=== PATIENT | female | born 1985 | race Caucasian/White ===

== ENCOUNTER 2017-01-12 18:04 | Outpatient (CLI) | payer MEDICAID ==
--- NOTE | 2017-01-12 18:52 | Non Stress Test Report ---
Non Stress Test Datetime Report Generated by CPN: 01/12/2017 18:51 DEMOGRAPHIC Test Number: 1 EGA NST: 37.3 INDICATION Indication for Study: Decreased Movement MONITORING Monitor Explained: Monitor Explained; Test Explained; Patient Verbalized Understanding Time on Monitor: 01/12/2017 18:28 Time off Monitor: 01/12/2017 18:50 NST Duration: 22 NST INTERVENTIONS NST Interventions: None Physician Notified NST: Dr. Bennett-Laci BABY A: [id number] BABY A Movement : Present Contraction Frequency : Irreg FHR Baseline : 135 Accelerations : 15X15 Decelerations : None Variability : Moderate 6-25bpm NST Review: Meets Criteria for Reactive NST NST Review and Verified By : ASHIA Griffin Results: Reactive NST REPORT Report Trigger: Send Report
[2017-01-12 19:05] LABS: BILIRUBIN,URINE NEGATIVE (NEGATIVE); GLUCOSE, URINE NEGATIVE (NEGATIVE); KETONES,URINE NEGATIVE (NEGATIVE); LEUKOCYTE ESTERASE,URINE SMALL (NEGATIVE); NITRITE,URINE NEGATIVE (NEGATIVE); PROTEIN,URINE NEGATIVE (NEGATIVE); URINE SPECIFIC GRAVITY 1.006; UROBILINOGEN,URINE NEGATIVE mg/dL (<2.0)
[2017-01-12 19:08] LABS: APPEARANCE,URINE CLEAR
[2017-01-12 19:13] LABS: URINE BARBITURATES SCREEN NEGATIVE; URINE METHADONE SCREEN NEGATIVE; URINE OPIATES LOW NEGATIVE; URINE PHENCYCLIDINE SCREEN NEGATIVE
== END 2017-01-12 18:40 | disposition home or self-care (01) ==
LOC: LC 18:04
PROVIDERS: ATTEND Obstetrics & Gynecology
DX: O36.8130 Decreased fetal movements, third trimester, not applicable or unspecified (principal); Z3A.37 37 weeks gestation of pregnancy
CPT/HCPCS: 59025; 80307; 81001

== ENCOUNTER 2017-01-23 04:20 | Inpatient (IN) | payer MEDICAID ==
[2017-01-23] MEDS ORDERED: LIDOCAINE 1% INJ-PF (10 MG/ML) 30 ML SDV ONE (04:30)
[2017-01-23] MEDS ORDERED: MISOPROSTOL 0.2 MG TABLET ONE (04:30)
[2017-01-23] MEDS ORDERED: OXYTOCIN/NORMAL SALINE 20 UNIT/1,000 ML RTUINJ ONE (04:30)
[2017-01-23] MEDS ORDERED: RINGERS SOLUTION,LACTATED 1,000 ML IV PRN (04:57)
[2017-01-23] MEDS ORDERED: RINGERS SOLUTION,LACTATED 1,000 ML IV ONE (04:57)
[2017-01-23 05:15] LABS: APPEARANCE,URINE CLOUDY; BILIRUBIN,URINE NEGATIVE (NEGATIVE); GLUCOSE, URINE NEGATIVE (NEGATIVE); KETONES,URINE NEGATIVE (NEGATIVE); LEUKOCYTE ESTERASE,URINE MODERATE (NEGATIVE); NITRITE,URINE NEGATIVE (NEGATIVE); PROTEIN,URINE NEGATIVE (NEGATIVE); URINE SPECIFIC GRAVITY 1.014; UROBILINOGEN,URINE NEGATIVE mg/dL (<2.0)
[2017-01-23] MEDS ORDERED: EPHEDRINE SULFATE INJ 50 MG/1 ML AMPULE ONE (05:27)
[2017-01-23] MEDS ORDERED: FENTANYL/BUPIVACAINE/NS/PF 200 MCG/100 ML RTUINJ EPI ONE (05:28)
[2017-01-23] MEDS ORDERED: BUPIVACAINE HCL 0.25 % INJ/PF (2.5 MG/1 ML) 30 ML VIAL ONE (05:28)
[2017-01-23 05:29] LABS: ABSOLUTE EOSINOPHILS # (AUTO) 0.2 10^3/uL (0.0-0.6); ABSOLUTE LYMPHOCYTES (AUTO) 2.6 10^3/uL (0.5-4.7); ABSOLUTE NEUT (AUTO) 7.1 10^3/uL (1.7-8.2); BASOPHILS % (AUTO) 0.3 % (0-2); EOSINOPHILS % (AUTO) 1.4 % (0-6); HEMATOCRIT 38.5 % (36.0-47.0); HEMOGLOBIN 13.4 g/dL (12.0-15.5); HGB HCT DIFFERENCE 1.7; LYMPHOCYTES % (AUTO) 24.2 % (13-45); MEAN CORPUSCULAR HEMOGLOBIN 30.4 pg (27.0-33.4); MEAN CORPUSCULAR HGB CONC 34.7 g/dL (32.0-36.0); MEAN CORPUSCULAR VOLUME 87 fl (80-97); MONOCYTES % (AUTO) 9.1 % (3-13); RED CELL DISTRIBUTION WIDTH 14.3 % (11.5-14.0); WHITE BLOOD COUNT 10.9 10^3/uL (4.0-10.5)
[2017-01-23 05:32] LABS: URINE BARBITURATES SCREEN NEGATIVE; URINE METHADONE SCREEN NEGATIVE; URINE OPIATES LOW NEGATIVE; URINE PHENCYCLIDINE SCREEN NEGATIVE
--- NOTE | 2017-01-23 09:06 | L&D Progress Notes ---
PROGRESS NOTES Datetime Report Generated by CPN: 01/23/2017 09:06 PROGRESS NOTE Impression: Normal Progression of Labor Plan: Continue Present Management Informed Consent Obtained: Vaginal Delivery; Risks, Benefits and Alternatives Discussed Vital Signs : Reviewed Comment: 31 yo presents in active labor EDC 01/30/17 EGA 39 allergies pork products, milk, and apple juice breast and gall bladder surgeries abdomen soft and nontender FHTs 120s average variability uterine contractions- 2-5 min SVE c/c/+[address] proven pelvis to 8lbs 9 oz anticipate delivery VAGINAL EXAM Dilatation: 0 Effacement: 0 Station: -4 Contractions: None MEMBRANES Membranes: Intact FETUS A FHR - Baseline: 130 Monitoring: External US Variability: Moderate 6-25bpm Accelerations: 15X15 Decelerations: None FHR Category: Category I SIGNATURE SIGNATURE: [id number];[id number] SIGNATURE: [id number] Assignment: Steven Knott MD Signature: with User ID: [email or web address] : with User ID: [email or web address]
[2017-01-23] MEDS ORDERED: OXYTOCIN/NORMAL SALINE 20 UNIT/1,000 ML RTUINJ IV PRN (09:57)
[2017-01-23] MEDS ORDERED: ZOLPIDEM TARTRATE 5 MG TABLET PO PRN (09:57)
[2017-01-23] MEDS ORDERED: DIPH/PERTUSS(ACELL)/TETANUS VAC/PF 0.5 ML SYR (>=10YO) IM PRN (09:57)
[2017-01-23] MEDS ORDERED: ACETAMINOPHEN WITH CODEINE #3 TABLET PO PRN (09:57)
[2017-01-23] MEDS ORDERED: DIBUCAINE 1% OINTMENT 28 GM TP PRN (09:57)
--- NOTE | 2017-01-23 11:18 | Delivery Summary ---
Del Sum A-C Datetime Report Generated by CPN: 01/23/2017 11:18 DELIVERY PERSONNEL DELIVERY PERSONNEL: [id number] Delivery Doctor:: Aldo Verdin CNM Labor and Delivery Nurse:: Atul Garcia RN Nursery Nurse:: ASHIA Marcelino Tech/RETAIL PLANNING MANAGER: Megan Aguero, RETAIL PLANNING MANAGER II MATERNAL INFORMATION Delivery Anesthesia: Epidural Medications After Delivery: Pitocin Drip 20 Units/1000ml NSS Estimated Blood Loss (ml): 250 Maternal Complications: None Provider Comments: delivery of viable female light meconium noted at delivery bulb suctioned at perineum spouse at bedside SUBHA to abdomen tactile stimulation with spont cry noted spouse at bedside and cut cord after cord was clamped ff@u placenta intact 3VC hemostasis achieved EBL 250 cc perineum intact LABOR SUMMARY EDC: 01/30/2017 00:00 No. Babies in Womb: 1 Attempted: No Labor Anesthesia: Epidural LABOR INFORMATION Reason for Induction: Not Applicable Onset of Labor: 01/23/2017 04:36 Complete Dilatation: 01/23/2017 08:50 Oxytocin: N/A Group B Beta Strep: Negative Antibiotics # of Doses: 0 Antibiotics Time of Last Dose: n/a Name of Antibiotic Given: n/a Steroids Given: None Reason Steroids Not Administered: Not Applicable MEMBRANES Membranes Rupture Method: Spontaneous Rupture of Membranes: 01/23/2017 07:45 Length of Rupture (hr): 1.57 Amniotic Fluid Color: Clear Amniotic Fluid Amount: Small Amniotic Fluid Odor: Normal STAGES OF LABOR Stage 1 hr: 4 Stage 1 min: 14 Stage 2 hr: 0 Stage 2 min: 29 Stage 3 hr: 0 Stage 3 min: 4 Total Time in Labor hr: 4 Total Time in Labor min: 47 VAGINAL DELIVERY Episiotomy: None Laceration #1: None Laceration Extension #1: N/A Laceration Repair: Not Applicable CSECTION DELIVERY Primary Indication: N/A BABY A INFORMATION Delivery Date/Time: 01/23/2017 09:19 Method of Delivery: Vaginal Born in Route : No : N/A Forceps: N/A Vacuum Extraction: N/A Shoulder Dystocia : No PRESENTATION/POSITION BABY A Presentation: Cephalic Cephalic Presentation: Vertex Vertex Position: Right Occipital Anterior Breech Presentation: N/A PLACENTA INFORMATION BABY A Placenta Delivery Time : 01/23/2017 09:23 Placenta Method of Delivery: Spontaneous Placenta Status: Delivered SCORES BABY A Heart Rate 1 min: >100 bpm Resp Effort 1 min: Good Cry Reflex Irritability 1 min: Cough or Sneeze or Pulls Away Muscle Tone 1 min: Active Motion Color 1 min: Body [place], Extremities Blue Resuscitation Effort 1 min: Tactile Stimulation SCORE 1 MIN: 9 Heart Rate 5 min: >100 bpm Resp Effort 5 min: Good Cry Reflex Irritability 5 min: Cough or Sneeze or Pulls Away Muscle Tone 5 min: Active Motion Color 5 min: Completely [place] Resuscitation Effort 5 min: N/A SCORE 5 MIN: 10 INFANT INFORMATION BABY A Gestational Age at Delivery: 39.0 Gestational Status: Full Term- 39- 40.6 Weeks Infant Outcome : Liveborn Condition : Stable Infant Sex: Female IDENTIFICATION BABY A Verification Date/Time: 01/23/2017 10:01 ID Band Number: [id number] Mother's Name Verified: Yes RN Verifying : Darlene Templeton, RN and Atul aRdha, RN WEIGHT/LENGTH BABY A Birthweight (gm): 4190 Weight (lb): 9 Weight (oz): 4 Length (in): 20.50 Length (cm): 52.07 CORD INFORMATION BABY A No. Cord Vessels: 3 Nuchal Cord : N/A Cord Blood Taken: Yes-For Storage (Mom's Blood type +) Infant Suction: None; Mouth ASSESSMENT BABY A Infant Complications: None Physical Findings at Delivery: Within Normal Limits Infant Respirations: Appears Normal Skin to Skin: Yes Skin to Skin Time (min): 120 Toe Laster/ALS Called : No Care By: Linh King CNM SIGNATURES Assignment: Steven Knott MD Signature: with User ID: [email or web address] : with User ID: [email or web address]
--- NOTE | 2017-01-23 12:07 | Admission Physical ---
Datetime Report Generated by CPN: 01/23/2017 12:06 CURRENT ADMISSION Chief Complaint: Decreased Movement; Other Chief Complaint Other: Swelling Indication for Induction: Not Applicable Indication for Induction: Term, Intrauterine ; No Active Labor; Intact Membranes Admit Plan: Discharge Home ALLERGIES Medication Allergies: No Medication Allergies: milk (01/23/2017); pork derived (porcine) (01/23/2017); apple (01/23/2017) Medication Allergies: milk (01/23/2017); pork derived (porcine) (01/23/2017) Medication Allergies: No Known Allergies (01/12/2017) Latex: No Latex Allergies Food Allergies: milk, pork, apples Environmental Allergies: None OBSTETRICAL HISTORY EDC: 01/30/2017 00:00 : 8 Para: 3 Term: 3 : 0 SAB: 3 IAB: 1 Ectopic: 0 Livin Cesareans: 0 VBACs: 0 Multiple Births: 0 Gestational Diabetes: No Rh Sensitization: No Incompetent Cervix: No TODD: No Infertility: No ART Treatment: No Uterine Anomaly: No IUGR: No Hx Previous C/S: No Macrosomia: No Hx Loss/Stillborn: No PIH: No Hx : No Placenta Previa/Abruption: No Depression/PP Depression: No PTL/PROM: No Post Hemorrhage: No Current Procedures: Ultrasound; NST Obstetrical History Comments: G1-EAB G2- 38 week G3- SAB G4-SAB G5- SAB G6- 39 week G7- 38 week G8- current Obstetrical History Comments: G1-38 week G2-39 week G3- SAB G4-SAB G5- SAB G6-39 week G7- G8- current SEE RECORDS Alcohol: No Marijuana : No Cocaine: No Other Illicit Drugs: No Cigarettes: Never Smoker. [id number] MEDICAL HISTORY Diabetes: No Blood Transfusion: No Pulmonary Disease (Asthma, TB): Yes Breast Disease: Yes Hypertension: No Measuring Machine Tender Surgery: No Heart Disease: No Hosp/Surgery: No Autoimmune Disorder: No Anesthetic Complications: No Kidney Disease: No Abnormal Pap Smear: No Neuro/Epilepsy: No Psychiatric Disorders: No Other Medical Diseases: No Hepatitis/Liver Disease: No Significant Family History: No Varicosities/Phlebitis: No Trauma/Violence : No Thyroid Dysfunction: No Medical History Comments: Gallbladder removal 2015, breast reduction, asthma INFECTIOUS HISTORY Gonorrhea: No Genital Herpes: No Chlamydia: No Tuberculosis: No Syphilis: No Hepatitis: No HIV/AIDS Exposure: No Rash or Viral Illness: No HPV: No PHYSICAL EXAM General: Normal HEENT: Normal Neurologic: Normal Genitourinary Exam: Normal Extremities: Normal Pelvic Type: Adequate Physical Exam Comments: FHR 140, moderate variability, cat I, vertex, external US Vital Signs: Reviewed; Within Normal Limits VAGINAL EXAM Dilatation: 0 Effacement: 0 Station: -4 Contraction Comments: None MEMBRANES Membranes: Intact FETUS A EGA: 37.3 Monitoring: External US FHR- Baseline: 140 Variability: Moderate 6-25bpm Accelerations: 15X15 Decelerations: None FHR Category: Category I PLANS FOR LABOR AND DELIVERY Labor and Delivery: None Pain Management: Epidural Feeding Preference: Both Benefit of Breast Feed Discussed: Yes Circumcision: N/A INFORMED CONSENT Informed Consent Obtained: Vaginal Delivery; Risks, Benefits and Alternatives Discussed Signature: with User ID: [email or web address]
[2017-01-23] MEDS ORDERED: INFLUENZA ADLT QUAD (36MOS+) 2017-18 VAC 0.5 ML SYR IM PRN (12:39)
[2017-01-23] MEDS: IBUPROFEN 800 MG TABLET PO SCH ×2 (13:30→21:23)
[2017-01-23] MEDS: DOCUSATE SODIUM 100 MG CAPSULE PO SCH ×2 (15:18→17:29)
[2017-01-23] MEDS: FERROUS SULFATE 325 MG TABLET PO SCH ×2 (15:18→17:29)
[2017-01-23] MEDS: PRENATAL VITAMIN W DHA CAPSULE PO SCH (15:18)
[2017-01-23] MEDS: SENNOSIDES/DOCUSATE 8.6-50 MG 1 EACH TABLET PO SCH (15:18)
[2017-01-23] MEDS: ACETAMINOPHEN WITH CODEINE #3 TABLET PO PRN (19:22)
[2017-01-23] MEDS: BENZOCAINE/MENTHOL AEROSOL SPRAY 56 ML TOP PRN (21:24)
[2017-01-24] MEDS: IBUPROFEN 800 MG TABLET PO SCH ×3 (05:55→21:25)
[2017-01-24 07:37] LABS: HEMATOCRIT 35.6 % (36.0-47.0); HEMOGLOBIN 12.3 g/dL (12.0-15.5); HGB HCT DIFFERENCE 1.3; MEAN CORPUSCULAR HEMOGLOBIN 30.4 pg (27.0-33.4); MEAN CORPUSCULAR HGB CONC 34.7 g/dL (32.0-36.0); MEAN CORPUSCULAR VOLUME 88 fl (80-97); RED BLOOD COUNT 4.05 10^6/uL (3.72-5.28); RED CELL DISTRIBUTION WIDTH 14.5 % (11.5-14.0); WHITE BLOOD COUNT 8.4 10^3/uL (4.0-10.5)
[2017-01-24] MEDS: DOCUSATE SODIUM 100 MG CAPSULE PO SCH ×2 (09:29→17:39)
[2017-01-24] MEDS: FERROUS SULFATE 325 MG TABLET PO SCH ×2 (09:29→17:39)
[2017-01-24] MEDS: SENNOSIDES/DOCUSATE 8.6-50 MG 1 EACH TABLET PO SCH (09:30)
[2017-01-24] MEDS: PRENATAL VITAMIN W DHA CAPSULE PO SCH (09:30)
--- NOTE | 2017-01-24 10:17 | PDOC PROGRESS REPORT ---
Subjective-OB Subjective: Post Delivery Day: 31 year old. Denies any needs at this time Physical Exam (OB) Vital Signs: Temp Pulse Resp BP Pulse Ox 97.4 F 88 16 124/66 97 01/24/17 07:40 01/24/17 07:40 01/24/17 07:40 01/24/17 07:40 01/24/17 07:40 Intake & Output 01/23/17 01/24/17 01/25/17 06:59 06:59 06:59 Intake Total 502 Balance 502 Weight 107.9 kg - PIH/Pre-Eclampsia DTR's: 2 + Clonus: Negative Headache: Absent Epigastric Pain: No Visual Changes: No - Lochia Lochia Amount: Small 10-25 ml Lochia Color: Rubra/Red - Abdomen Description: Soft, Round Hernia Present: No Bowel Sounds: Normoactive Flatus Presence: Present Stool: Yes Fundal Description: Firm, Midline Fundal Height: u/u - u/2 Objective-Diagnostic Laboratory: 01/24/17 07:25 01/24/17 07:25 WBC 8.4 RBC 4.05 Hgb 12.3 Hct 35.6 L MCV 88 MCH 30.4 MCHC 34.7 RDW 14.5 H Plt Count 173
[2017-01-24] MEDS: ACETAMINOPHEN WITH CODEINE #3 TABLET PO PRN (22:21)
[2017-01-25] MEDS: IBUPROFEN 800 MG TABLET PO SCH (06:01)
[2017-01-25 08:42] VITALS: BP 116/71
[2017-01-25] MEDS: PRENATAL VITAMIN W DHA CAPSULE PO SCH (09:58)
[2017-01-25] MEDS: DOCUSATE SODIUM 100 MG CAPSULE PO SCH (10:00)
[2017-01-25] MEDS: FERROUS SULFATE 325 MG TABLET PO SCH (10:00)
[2017-01-25] MEDS: SENNOSIDES/DOCUSATE 8.6-50 MG 1 EACH TABLET PO SCH (10:00)
[2017-01-25] MEDS: BENZOCAINE/MENTHOL AEROSOL SPRAY 56 ML TOP PRN (10:01)
--- NOTE | 2017-01-25 10:36 | PDOC DISCHARGE SUMMARY ---
Final Diagnosis Discharge Date: 01/25/17 Discharge Data - Discharge Medication Home Medications: Vit/Iron Fum/Folic AC [ Tablet] 1 tab PO DAILY 01/12/17 Hydrocodone/Acetaminophen [Vicodin Es 7.5-300 mg Tablet] 1 each PO Q4HP PRN #10 tablet 01/25/17 Hydrocodone/Acetaminophen [Vicodin Es 7.5-300 mg Tablet] 1 each PO Q4HP PRN #10 tablet 01/25/17 Ibuprofen 800 mg PO Q8HP PRN #60 tablet 01/25/17 Ibuprofen [Motrin 800 mg Tablet] 800 mg PO Q8 #60 tablet 01/25/17 Reason(s) for Admission: Onset of Labor Intrapartum Procedure(s): Spontaneous Vaginal Delivery - Diagnosis Test Laboratory: Temp Pulse Resp BP Pulse Ox 97.9 F 84 18 116/71 99 01/25/17 07:58 01/25/17 07:58 01/25/17 07:58 01/25/17 07:58 01/25/17 07:58 01/23/17 01/23/17 01/24/17 04:30 04:56 07:25 RBC 4.40 4.05 Hgb 13.4 12.3 Hct 38.5 35.6 L Urine Opiates Screen NEGATIVE - Discharge information/Instructions Discharge Activity: Balance Activity w/Rest Discharge Diet: Regular Disposition: HOME, SELF-CARE Follow up with: [facility] in: 4, Weeks
--- NOTE | 2017-01-25 10:38 | PDOC PROGRESS REPORT ---
Subjective-OB Subjective: Post Delivery Day: 31 year old. pt doing well, reports diminished bleeding, pain controlled, voiding, tolerating diet. no complaints. Physical Exam (OB) Vital Signs: Temp Pulse Resp BP Pulse Ox 97.9 F 84 18 116/71 99 01/25/17 07:58 01/25/17 07:58 01/25/17 07:58 01/25/17 07:58 01/25/17 07:58 Intake & Output 01/24/17 01/25/17 01/26/17 06:59 06:59 06:59 Intake Total 502 340 Balance 502 340 - Abdomen Description: Soft, Round Hernia Present: No Fundal Description: Firm, Midline Fundal Height: u/u - u/2 - Extremities Lower extremities: Yudi's sign - neg Calf: Nontender Objective-Diagnostic Laboratory: 01/24/17 07:25
== END 2017-01-25 12:36 | disposition home or self-care (01) | DRG 775 ==
LOC: LC 04:20 → LR 04:27 → 2S 12:05
PROVIDERS: ADMIT Obstetrics & Gynecology; ATTEND Obstetrics & Gynecology
PROC: 10E0XZZ Delivery of Products of Conception, External Approach (ICD-10-PCS; principal; 2017-01-23)
PROC: 4A1HXCZ Monitoring of Products of Conception, Cardiac Rate, External Approach (ICD-10-PCS; 2017-01-23)
DX: O76 Abnormality in fetal heart rate and rhythm complicating labor and delivery (principal); O99.52 Diseases of the respiratory system complicating childbirth; J45.909 Unspecified asthma, uncomplicated; O77.0 Labor and delivery complicated by meconium in amniotic fluid; Z88.8 Allergy status to other drugs, medicaments and biological substances; Z91.011 Allergy to milk products; Z3A.39 39 weeks gestation of pregnancy; Z37.0 Single live birth
CPT/HCPCS: 36415; 80307; 81005; 85025; 85027; 86592; 86850; 86900; 86901; 90686; J2590; J3490

== ENCOUNTER 2018-06-28 11:28 | Outpatient (CLI) | payer BC, MEDICAID ==
[2018-06-28 12:51] LABS: BACTERIA (WET MOUNT) 3+ BACTERIA SEEN; EPITHELIALS (WET MOUNT) 4+ EPITHELIALS SEEN; T.VAGINALIS (WET MOUNT) NO TRICHOMONAS SEEN; WBCS (WET MOUNT) 1+ WBCS SEEN; YEAST (WET MOUNT) NO YEAST SEEN
[2018-06-28 13:06] LABS: APPEARANCE,URINE CLEAR; BILIRUBIN,URINE NEGATIVE (NEGATIVE); COLOR,URINE YELLOW; GLUCOSE, URINE NEGATIVE (NEGATIVE); KETONES,URINE NEGATIVE (NEGATIVE); LEUKOCYTE ESTERASE,URINE NEGATIVE (NEGATIVE); NITRITE,URINE NEGATIVE (NEGATIVE); PROTEIN,URINE NEGATIVE (NEGATIVE); URINE SPECIFIC GRAVITY 1.011; UROBILINOGEN,URINE NEGATIVE mg/dL (<2.0)
[2018-06-28 13:16] LABS: URINE AMPHETAMINES SCREEN NEGATIVE; URINE BARBITURATES SCREEN NEGATIVE; URINE BENZODIAZEPINES SCREEN NEGATIVE; URINE COCAINE SCREEN NEGATIVE; URINE MARIJUANA (THC) SCREEN NEGATIVE; URINE METHADONE SCREEN NEGATIVE; URINE PHENCYCLIDINE SCREEN NEGATIVE
[2018-06-28 14:18] LABS: CHLAM PCR NOT DETECTED (NOT DETECT); GON PCR NOT DETECTED (NOT DETECT)
== END 2018-06-28 13:20 | disposition home or self-care (01) ==
LOC: LC 11:28
PROVIDERS: ATTEND Obstetrics & Gynecology
DX: O47.02 False labor before 37 completed weeks of gestation, second trimester (principal); Z3A.24 24 weeks gestation of pregnancy
CPT/HCPCS: 87210; 81001; 80307; 87491; 87591; Q0114

== ENCOUNTER 2018-10-14 01:47 | Inpatient (IN) | payer BC, MEDICAID ==
[2018-10-14 02:16] LABS: APPEARANCE,URINE SLIGHTLY-CLOUDY; BILIRUBIN,URINE NEGATIVE (NEGATIVE); COLOR,URINE YELLOW; GLUCOSE, URINE NEGATIVE (NEGATIVE); KETONES,URINE NEGATIVE (NEGATIVE); LEUKOCYTE ESTERASE,URINE LARGE (NEGATIVE); NITRITE,URINE NEGATIVE (NEGATIVE); PROTEIN,URINE NEGATIVE (NEGATIVE); URINE SPECIFIC GRAVITY 1.014; UROBILINOGEN,URINE NEGATIVE mg/dL (<2.0)
[2018-10-14 02:33] LABS: URINE AMPHETAMINES SCREEN NEGATIVE; URINE BARBITURATES SCREEN NEGATIVE; URINE BENZODIAZEPINES SCREEN NEGATIVE; URINE COCAINE SCREEN NEGATIVE; URINE MARIJUANA (THC) SCREEN NEGATIVE; URINE METHADONE SCREEN NEGATIVE; URINE PHENCYCLIDINE SCREEN NEGATIVE
[2018-10-14] MEDS ORDERED: HYDROXYZINE PAMOATE 50 MG CAPSULE PO ONE (03:26)
[2018-10-14] MEDS ORDERED: LIDOCAINE 1% INJ-PF (10 MG/ML) 30 ML SDV ONE (06:07)
[2018-10-14] MEDS ORDERED: MISOPROSTOL 0.2 MG TABLET ONE (06:07)
[2018-10-14] MEDS ORDERED: OXYTOCIN 10 UNIT/ML VIAL ONE (06:07)
[2018-10-14] MEDS ORDERED: OXYTOCIN/NORMAL SALINE 20 UNIT/1,000 ML RTUINJ ONE (06:07)
--- NOTE | 2018-10-14 06:20 | Admission Physical ---
Datetime Report Generated by CPN: 10/14/2018 06:19 CURRENT ADMISSION Chief Complaint: Uterine Contractions Indication for Induction: Not Applicable Admit Impression : Term, Intrauterine ; Active Labor Admit Plan: Admit to Unit; Initiate Labor Protocol ALLERGIES Medication Allergies: No Medication Allergies: milk (10/14/2018); pork derived (porcine) (10/14/2018); apple (10/14/2018) Latex: No Latex Allergies OBSTETRICAL HISTORY EDC: 10/15/2018 00:00 : 9 Para: 4 Term: 4 : 0 SAB: 3 IAB: 1 Ectopic: 0 Livin Cesareans: 0 VBACs: 0 Multiple Births: 0 Gestational Diabetes: No Rh Sensitization: No Incompetent Cervix: No TODD: No Infertility: No ART Treatment: No Uterine Anomaly: No IUGR: No Hx Previous C/S: No Macrosomia: No Hx Loss/Stillborn: No PIH: No Hx : No Placenta Previa/Abruption: No Depression/PP Depression: No PTL/PROM: No Post Hemorrhage: No Current Procedures: Ultrasound; NST Obstetrical History Comments: G1- 2009 EAB at 6 weeks G2- 2011 at 38 weeks, 8lbs 9oz male G3- 2013 SAB at 6 weeks G4- 2013 SAB at 6 weeks G5- 2014 SAB at 5 weeks G6- 2014 at 39 weeks, 7lbs male G7- 2016 at 38 weeks, 7lbs 9oz male G8- 2017 at 39 weeks, 9lbs 4oz male G9- current SEE RECORDS Alcohol: No Marijuana : No Cocaine: No Other Illicit Drugs: No Cigarettes: Never Smoker. [id number] MEDICAL HISTORY Diabetes: No Blood Transfusion: No Pulmonary Disease (Asthma, TB): Yes Breast Disease: Yes Hypertension: No Branch Or Department Chief Librarian Surgery: No Heart Disease: No Hosp/Surgery: Yes Autoimmune Disorder: No Anesthetic Complications: No Kidney Disease: No Abnormal Pap Smear: No Neuro/Epilepsy: No Psychiatric Disorders: No Other Medical Diseases: No Hepatitis/Liver Disease: No Significant Family History: No Varicosities/Phlebitis: No Trauma/Violence : No Thyroid Dysfunction: No Medical History Comments: asthma, gallbladder removal, breast reduction, childbirth INFECTIOUS HISTORY Gonorrhea: No Genital Herpes: No Chlamydia: No Tuberculosis: No Syphilis: No Hepatitis: No HIV/AIDS Exposure: No Rash or Viral Illness: No HPV: No PHYSICAL EXAM General: Normal HEENT: Normal Neurologic: Normal Thyroid: Normal Heart: Normal Lungs: Normal Breast: Normal Back: Normal Abdomen: Normal Genitourinary Exam: Normal Extremities: Normal DTRs: Normal Pelvic Type: Adequate Vital Signs: Reviewed; Within Normal Limits VAGINAL EXAM Dilatation: 4 Effacement: 75 Station: -1 MEMBRANES Pooling: Negative Membranes: Intact FETUS A EGA: 39.6 Monitoring: External US FHR- Baseline: 120s Variability: Moderate 6-25bpm Accelerations: 15X15 FHR Category: Category I Presentation: Vertex Admit Comment: presents to L_D c/o contractions. Her ctx were irregular and she was allowed to walk--her ctx became more rgeular and more painful. Her cervix is 4 cm. GBS Negative. She reports good movement. No complications with the . PLANS FOR LABOR AND DELIVERY Labor and Delivery: None Pain Management: Epidural Feeding Preference: Breast Benefit of Breast Feed Discussed: Yes Circumcision: N/A INFORMED CONSENT Signature: with User ID: [email or web address]
[2018-10-14 06:57] LABS: ABSOLUTE EOSINOPHILS # (AUTO) 0.2 10^3/uL (0.0-0.6); ABSOLUTE LYMPHOCYTES (AUTO) 2.3 10^3/uL (0.5-4.7); ABSOLUTE MONOCYTES (AUTO) 0.9 10^3/uL (0.1-1.4); ABSOLUTE NEUT (AUTO) 7.1 10^3/uL (1.7-8.2); BASOPHILS % (AUTO) 0.3 % (0-2); EOSINOPHILS % (AUTO) 1.8 % (0-6); HEMATOCRIT 36.9 % (36.0-47.0); HEMOGLOBIN 13.1 g/dL (12.0-15.5); LYMPHOCYTES % (AUTO) 21.6 % (13-45); MEAN CORPUSCULAR HGB CONC 35.4 g/dL (32.0-36.0); MEAN CORPUSCULAR VOLUME 88 fl (80-97); MONOCYTES % (AUTO) 8.5 % (3-13); PLATELET COUNT 211 10^3/uL (150-450); RED BLOOD COUNT 4.21 10^6/uL (3.72-5.28); RED CELL DISTRIBUTION WIDTH 14.5 % (11.5-14.0); SEGMENTED NEUTROPHILS % (AUTO) 67.8 % (42-78); TOTAL CELLS COUNTED % (AUTO) 100 %; WHITE BLOOD COUNT 10.5 10^3/uL (4.0-10.5)
[2018-10-14] MEDS ORDERED: FENTANYL/BUPIVACAINE/NS/PF 300 MCG/150 ML RTUINJ EPI ONE (07:58)
[2018-10-14] MEDS ORDERED: EPHEDRINE SULFATE INJ 50 MG/1 ML AMPULE ONE (07:58)
[2018-10-14] MEDS ORDERED: BUPIVACAINE HCL 0.25 % INJ/PF (2.5 MG/1 ML) 30 ML VIAL ONE (07:58)
[2018-10-14] MEDS: RINGERS SOLUTION,LACTATED 1,000 ML IV PRN ×3 (08:06→10:33)
[2018-10-14] MEDS ORDERED: PROMETHAZINE HCL 25 MG SUPP.RECT PR PRN (11:26)
[2018-10-14] MEDS ORDERED: NA PHOS,M-B/NA PHOS,DI-BA (ADULT) 133 ML ENEMA PR PRN (11:26)
[2018-10-14] MEDS ORDERED: DIPH/PERTUSS(ACELL)/TETANUS VAC/PF 0.5 ML SYR (>=10YO) IM PRN (11:26)
[2018-10-14] MEDS ORDERED: BENZOCAINE/MENTHOL AEROSOL SPRAY 56 ML TOP PRN (11:26)
[2018-10-14] MEDS ORDERED: DIBUCAINE 1% OINTMENT 56 GM TP PRN (11:26)
[2018-10-14] MEDS ORDERED: PROMETHAZINE HCL INJ 25 MG/1 ML VIAL IV PRN (11:26)
[2018-10-14] MEDS ORDERED: PSEUDOEPHEDRINE HCL 30 MG TABLET PO PRN (11:26)
[2018-10-14] MEDS ORDERED: ACETAMINOPHEN WITH CODEINE #3 TABLET PO PRN ×2 (11:26)
[2018-10-14] MEDS ORDERED: ACETAMINOPHEN 650 MG SUPP.RECT PR PRN (11:26)
[2018-10-14] MEDS ORDERED: MISOPROSTOL 0.2 MG TABLET PR PRN (11:26)
[2018-10-14] MEDS ORDERED: MAGNESIUM HYDROXIDE SUSP 30 ML UDCUP PO PRN (11:26)
[2018-10-14] MEDS ORDERED: GLYCERIN/WITCH HAZEL LEAF 1 EACH MED..WIPE TP PRN (11:26)
[2018-10-14] MEDS ORDERED: DIPHENHYDRAMINE HCL 25 MG CAPSULE PO PRN (11:26)
[2018-10-14] MEDS ORDERED: PROMETHAZINE HCL 25 MG TABLET PO PRN (11:26)
[2018-10-14] MEDS ORDERED: OXYTOCIN/NORMAL SALINE 20 UNIT/1,000 ML RTUINJ IV PRN (11:26)
[2018-10-14] MEDS ORDERED: MEASLES,MUMPS&RUBELLA VACC/PF 0.5 ML VIAL SUBCUT PRN (11:26)
--- NOTE | 2018-10-14 13:44 | Delivery Summary ---
Del Sum A-C Datetime Report Generated by CPN: 10/14/2018 13:43 DELIVERY PERSONNEL DELIVERY PERSONNEL: [id number] Delivery Doctor:: Codie Zacarias CNM Labor and Delivery Nurse:: Dwight Menchaca RNclock and watch hands dipper Nurse:: Fany Paniagua RN Manager Psychiatry/CYTOTECHNOLOGIST/HISTOTECHNOLOGIST: Shawanda Leung CST Additional Personnel: : Gris Poon RN MATERNAL INFORMATION Delivery Anesthesia: Epidural Medications After Delivery: Pitocin Bolus-Please Comment; Pitocin Drip 20 Units/1000ml NSS; Cytotec 1000mcg Per Rectum/Vagina Delivery QBL: 300 Maternal Complications: None Provider Comments: viable female form OA to PRACHI over intact perineum, placed on mothers abd, cord clamped and cut after 2 minutes by FOB, spont delivery of grossly nl intact placenta, 3 VC, baby and mom remain in recovery in stable condition, bonding with baby FFFM Cytotec 1000 mcg via rectum LABOR SUMMARY EDC: 10/15/2018 00:00 No. Babies in Womb: 1 Attempted: No Labor Anesthesia: Epidural LABOR INFORMATION Reason for Induction: Not Applicable Onset of Labor: 10/14/2018 07:00 (Annotations: Data stored by N on behalf of user) Complete Dilatation: 10/14/2018 10:55 Cervical Ripening Agents: Cytotec @ 1 gm Oxytocin: N/A Group B Beta Strep: Negative Antibiotics # of Doses: 0 Steroids Given: None Reason Steroids Not Administered: Not Applicable MEMBRANES Membranes Rupture Method: Artificial Rupture of Membranes: 10/14/2018 08:58 Length of Rupture (hr): 2.18 Amniotic Fluid Color: Clear Amniotic Fluid Amount: Small Amniotic Fluid Odor: Normal STAGES OF LABOR Stage 1 hr: 3 Stage 1 min: 55 Stage 2 hr: 0 Stage 2 min: 14 Stage 3 hr: 0 Stage 3 min: 4 Total Time in Labor hr: 4 Total Time in Labor min: 13 VAGINAL DELIVERY Episiotomy: None Laceration #1: None Laceration Extension #1: N/A Other Laceration: SURERFICIAL ABRASION Laceration Repair: No Sponge Count Correct: N/A Sharps Count Correct: N/A CSECTION DELIVERY Primary Indication: N/A Secondary Indication: N/A CSection Incidence: N/A Labor: N/A Elective: N/A CSection Incision: N/A BABY A INFORMATION Infant Delivery Date/Time: 10/14/2018 11:09 Method of Delivery: Vaginal Born in Route : No : N/A Forceps: N/A Vacuum Extraction: N/A Shoulder Dystocia : No PRESENTATION/POSITION BABY A Presentation: Cephalic Cephalic Presentation: Vertex Vertex Position: Left Occipital Anterior Breech Presentation: N/A PLACENTA INFORMATION BABY A Placenta Delivery Time : 10/14/2018 11:13 Placenta Method of Delivery: Spontaneous Placenta Status: Delivered SCORES BABY A Heart Rate 1 min: >100 bpm Resp Effort 1 min: Good Cry Reflex Irritability 1 min: Cough or Sneeze or Pulls Away Muscle Tone 1 min: Active Motion Color 1 min: Blue/Pale Resuscitation Effort 1 min: Tactile Stimulation SCORE 1 MIN: 8 Heart Rate 5 min: >100 bpm Resp Effort 5 min: Good Cry Reflex Irritability 5 min: Cough or Sneeze or Pulls Away Muscle Tone 5 min: Active Motion Color 5 min: Body [place], Extremities Blue Resuscitation Effort 5 min: Tactile Stimulation SCORE 5 MIN: 9 INFANT INFORMATION BABY A Gestational Age at Delivery: 39.6 Gestational Status: Full Term- 39- 40.6 Weeks Infant Outcome : Liveborn Infant Condition : Stable Infant Sex: Female IDENTIFICATION BABY A Infant Verification Date/Time: 10/14/2018 11:27 ID Band Number: [id number] Mother's Name Verified: Yes RN Verifying : TMartin,RN Additional Verifying Personnel: DSprouse,US WEIGHT/LENGTH BABY A Infant Birthweight (gm): 4169 Infant Weight (lb): 9 Infant Weight (oz): 3 Infant Length (in): 21.00 Infant Length (cm): 53.34 CORD INFORMATION BABY A No. Cord Vessels: 3 Nuchal Cord : Around Neck x1, Loose Cord Blood Taken: Yes-For Storage (Mom's Blood type +) Infant Suction: None ASSESSMENT BABY A Infant Complications: None Physical Findings at Delivery: Within Normal Limits Infant Respirations: Appears Normal Skin to Skin: Yes Skin to Skin Time (min): 45 Radio Broadcaster/ALS Called : No Care By: Alley POON RN Transferred To: Remains with Mother BABY B INFORMATION : N/A
[2018-10-14] MEDS: IBUPROFEN 800 MG TABLET PO SCH ×2 (16:00→21:29)
[2018-10-14] MEDS: DOCUSATE SODIUM 100 MG CAPSULE PO SCH (18:09)
[2018-10-14] MEDS: FERROUS SULFATE 325 MG TABLET PO SCH (18:09)
[2018-10-14] MEDS: FAMOTIDINE 20 MG TABLET PO SCH (21:29)
[2018-10-15] MEDS: IBUPROFEN 800 MG TABLET PO SCH ×3 (06:20→21:37)
[2018-10-15 07:06] LABS: HEMATOCRIT 35.7 % (36.0-47.0); HEMOGLOBIN 12.3 g/dL (12.0-15.5); MEAN CORPUSCULAR HEMOGLOBIN 30.4 pg (27.0-33.4); MEAN CORPUSCULAR HGB CONC 34.4 g/dL (32.0-36.0); MEAN CORPUSCULAR VOLUME 88 fl (80-97); PLATELET COUNT 196 10^3/uL (150-450); RED BLOOD COUNT 4.03 10^6/uL (3.72-5.28); RED CELL DISTRIBUTION WIDTH 14.7 % (11.5-14.0); WHITE BLOOD COUNT 11.6 10^3/uL (4.0-10.5)
[2018-10-15] MEDS: DOCUSATE SODIUM 100 MG CAPSULE PO SCH ×2 (10:26→17:31)
[2018-10-15] MEDS: PRENATAL VITAMIN W DHA CAPSULE PO SCH (10:26)
[2018-10-15] MEDS: FERROUS SULFATE 325 MG TABLET PO SCH ×2 (10:26→17:31)
[2018-10-15] MEDS: SENNOSIDES/DOCUSATE 8.6-50 MG 1 EACH TABLET PO SCH (10:26)
[2018-10-15] MEDS: FAMOTIDINE 20 MG TABLET PO SCH ×2 (10:26→21:38)
--- NOTE | 2018-10-15 11:23 | PDOC PROGRESS REPORT ---
Subjective-OB Progress Note for:: 10/15/18 Subjective: 33yo s/p ppd1. Pt ambulating and voiding without difficulty. Reports pain well controlled with medication, no concerns at this time. Physical Exam (OB) Vital Signs: Temp Pulse Resp BP Pulse Ox 97.8 F 69 18 120/61 98 10/15/18 07:21 10/15/18 07:21 10/15/18 07:21 10/15/18 07:21 10/15/18 07:21 Intake & Output 10/14/18 10/15/18 10/16/18 06:59 06:59 06:59 Intake Total 307 Balance 307 Weight 110.5 kg 110.5 kg - General General Appearance: Appears well In distress: None - PIH/Pre-Eclampsia Clonus: Negative Headache: Absent Epigastric Pain: No Visual Changes: No - Episiotomy/Laceration Site Condition: N/A - superficial abrasion-hemostatic - Lochia Lochia Amount: Scant < 10 ml Lochia Color: Rubra/Red - Abdomen Description: Soft, Round Hernia Present: No Fundal Description: Firm, Midline Fundal Height: u/u - u/2 - Respiratory Respiratory Status: No respiratory distress - Extremities Upper extremity: Normal inspection Lower extremities: Normal inspection - Neurological Cognition: Normal Orientation: AAOx4 - Psychological Associated symptoms: Normal affect, Normal mood Objective-Diagnostic Laboratory: 10/15/18 06:53 10/15/18 06:53 WBC 11.6 H RBC 4.03 Hgb 12.3 Hct 35.7 L MCV 88 MCH 30.4 MCHC 34.4 RDW 14.7 H Plt Count 196 Assessment and Plan(PN) - Assessment and Plan (1) Grand multiparity Is this a current diagnosis for this admission?: Yes Plan: delivered (2) Delivery normal Is this a current diagnosis for this admission?: Yes Plan: routine pp care (3) History of asthma Is this a current diagnosis for this admission?: Yes Plan: routine pp care, continue to monitor for s/s of exacerbation (4) Hx of bilateral breast reduction surgery Is this a current diagnosis for this admission?: Yes Plan: delivered - Time Spent with Patient Time with patient: Less than 15 minutes Medications reviewed and adjusted accordingly: Yes - Disposition Anticipated Discharge: Home Within: within 24 hours
[2018-10-16] MEDS: IBUPROFEN 800 MG TABLET PO SCH (05:26)
[2018-10-16 08:44] VITALS: BP 125/75
[2018-10-16] MEDS: SENNOSIDES/DOCUSATE 8.6-50 MG 1 EACH TABLET PO SCH (09:57)
[2018-10-16] MEDS: FAMOTIDINE 20 MG TABLET PO SCH (09:57)
[2018-10-16] MEDS: FERROUS SULFATE 325 MG TABLET PO SCH (09:57)
[2018-10-16] MEDS: DOCUSATE SODIUM 100 MG CAPSULE PO SCH (09:57)
[2018-10-16] MEDS: PRENATAL VITAMIN W DHA CAPSULE PO SCH (09:57)
--- NOTE | 2018-10-16 10:04 | PDOC DISCHARGE SUMMARY ---
Final Diagnosis Discharge Date: 10/16/18 - day #2, doing well, no complaints, AB+, rubella immune, breast and bottlefeeding - Final Diagnosis (1) Grand multiparity Is this a current diagnosis for this admission?: Yes (2) Delivery normal Is this a current diagnosis for this admission?: Yes (3) History of asthma Is this a current diagnosis for this admission?: Yes (4) Hx of bilateral breast reduction surgery Is this a current diagnosis for this admission?: No (5) Is this a current diagnosis for this admission?: Yes Discharge Data - Discharge Medication Prescriptions: Ibuprofen [Motrin 800 mg Tablet] 800 mg PO Q8 #60 tablet Home Medications: No122/Iron/Folic Acid [ Multi Tablet] 1 tab PO DAILY 06/28/18 Ibuprofen [Motrin 800 mg Tablet] 800 mg PO Q8 #60 tablet 10/16/18 Reason(s) for Admission: Onset of Labor Procedures: Ultrasound Intrapartum Procedure(s): Spontaneous Vaginal Delivery - Diagnosis Test Laboratory: Temp Pulse Resp BP Pulse Ox 97.7 F 75 17 125/75 97 10/16/18 07:26 10/16/18 07:26 10/16/18 07:26 10/16/18 07:26 10/16/18 07:26 10/14/18 10/14/18 10/15/18 01:55 06:38 06:53 RBC 4.21 4.03 Hgb 13.1 12.3 Hct 36.9 35.7 L Urine Opiates Screen NEGATIVE - Discharge information/Instructions Discharge Activity: Activity As Tolerated, No Lifting Over 10 Pounds, Pelvic Rest Discharge Diet: As Tolerated, Regular Disposition: HOME, SELF-CARE Follow up with: [facility] in: 2, Weeks - f/u with PARAMJIT MATHIS for BTL consult and scheduling
== END 2018-10-16 13:42 | disposition home or self-care (01) | DRG 807 ==
LOC: LC 01:47 → LR 06:11 → 2S 13:20
PROVIDERS: ADMIT Obstetrics & Gynecology; ATTEND Obstetrics & Gynecology
PROC: 10E0XZZ Delivery of Products of Conception, External Approach (ICD-10-PCS; principal; 2018-10-14)
PROC: 3E0234Z Introduction of Serum, Toxoid and Vaccine into Muscle, Percutaneous Approach (ICD-10-PCS; 2018-10-16)
DX: O70.0 First degree perineal laceration during delivery (principal); Z37.0 Single live birth; O99.513 Diseases of the respiratory system complicating pregnancy, third trimester; J45.909 Unspecified asthma, uncomplicated; O69.81X0 Labor and delivery complicated by cord around neck, without compression, not applicable or unspecified; Z3A.39 39 weeks gestation of pregnancy; Z23 Encounter for immunization
CPT/HCPCS: 36415; 80307; 81005; 85025; 85027; 86592; 86850; 86900; 86901; 90715; J2590; J3010; J3490

== ENCOUNTER 2018-12-05 09:27 | Day surgery (SDC) | payer BC, MEDICAID ==
[2018-12-01 10:57] LABS: HEMATOCRIT 41.6 % (36.0-47.0); HEMOGLOBIN 14.4 g/dL (12.0-15.5); MEAN CORPUSCULAR HEMOGLOBIN 30.5 pg (27.0-33.4); MEAN CORPUSCULAR HGB CONC 34.7 g/dL (32.0-36.0); MEAN CORPUSCULAR VOLUME 88 fl (80-97); PLATELET COUNT 295 10^3/uL (150-450); RED BLOOD COUNT 4.73 10^6/uL (3.72-5.28); RED CELL DISTRIBUTION WIDTH 13.7 % (11.5-14.0); WHITE BLOOD COUNT 8.4 10^3/uL (4.0-10.5)
[2018-12-01 11:05] LABS: APPEARANCE,URINE SLIGHTLY-CLOUDY; BILIRUBIN,URINE NEGATIVE (NEGATIVE); COLOR,URINE YELLOW; GLUCOSE, URINE NEGATIVE (NEGATIVE); KETONES,URINE NEGATIVE (NEGATIVE); LEUKOCYTE ESTERASE,URINE NEGATIVE (NEGATIVE); NITRITE,URINE NEGATIVE (NEGATIVE); PROTEIN,URINE NEGATIVE (NEGATIVE); URINE SPECIFIC GRAVITY 1.018; UROBILINOGEN,URINE NEGATIVE mg/dL (<2.0)
[~2018-12-05 09:27] MED LIST: LACTATED RINGERS 1000 ML IV PRN; LIDOCAINE 0.5% INJ-PF (5 MG/ML) 50 ML SDV SUBCUT PRN
[2018-12-05] MEDS ORDERED: BUPIVACAINE HCL 0.25 % INJ/PF (2.5 MG/1 ML) 30 ML VIAL ONE (09:50)
[2018-12-05] MEDS ORDERED: MEPERIDINE HCL/PF INJ 25 MG/1 ML DISP.SYRIN IV PRN ×2 (10:46→12:54)
[2018-12-05] MEDS ORDERED: PROMETHAZINE HCL INJ 25 MG/1 ML VIAL IV PRN ×4 (10:46→12:54)
[2018-12-05] MEDS ORDERED: FENTANYL CITRATE INJ/PF 100 MCG/2 ML AMPUL IV PRN ×6 (10:46→12:54)
[2018-12-05] MEDS ORDERED: ONDANSETRON HCL INJ/PF 4 MG/2 ML SDV IV PRN ×2 (10:46→12:12)
[2018-12-05] MEDS ORDERED: DIPHENHYDRAMINE HCL 50 MG/ML VIAL IV PRN ×2 (10:46→12:54)
[2018-12-05] MEDS ORDERED: FENTANYL CITRATE INJ/PF 100 MCG/2 ML AMPUL ONE ×2 (11:32→11:39)
[2018-12-05] MEDS ORDERED: PROPOFOL INJ 200 MG/20 ML VIAL IV ONE (11:32)
[2018-12-05] MEDS ORDERED: PROMETHAZINE HCL INJ 25 MG/1 ML VIAL ONE (11:39)
[2018-12-05] MEDS ORDERED: KETOROLAC TROMETHAMINE INJ/PF 30 MG/1 ML SDV ONE (12:22)
[2018-12-05] MEDS ORDERED: MIDAZOLAM 2 MG/2 ML INJ ONE (12:50)
[2018-12-05] MEDS: OXYCODONE-ACETAMINOPHEN 5-325 MG TABLET ONE ×2 (13:25→14:47)
[2018-12-05 14:44] VITALS: BP 117/74
[2018-12-05] MEDS ORDERED: RINGERS SOLUTION,LACTATED 1,000 ML IV PRN (15:01)
[2018-12-05] MEDS ORDERED: HYDROMORPHONE HCL INJ/PF 2 MG/ML AMPULE IV PRN (15:02)
[2018-12-05] MEDS ORDERED: IBUPROFEN 800 MG TABLET PO PRN (15:03)
[2018-12-05] MEDS ORDERED: OXYCODONE-ACETAMINOPHEN 5-325 MG TABLET PO PRN ×2 (15:04→15:05)
--- NOTE | 2018-12-21 08:45 | Operative Report ---
Operative Report DATE OF SURGERY: 12/05/18 PREOPERATIVE DIAGNOSIS: Multiparity, Undesired Fertility POSTOPERATIVE DIAGNOSIS: [place] OPERATION: Laparoscopic Bilateral TUbal Ligation with Filschie Clips SURGEON: TRAVIS SIMONS ANESTHESIA: GA TISSUE REMOVED OR ALTERED: None COMPLICATIONS: None ESTIMATED BLOOD LOSS: less than 5ml INTRAOPERATIVE FINDINGS: normal appearing pelvis. Filschie Clips placed bilaterally. Lot # [id number] PROCEDURE: Anesthesiologist: Deangelo MATHIS, Ryder Trent CRNA IV fluids: [700ml] Urine output: [50ml] Indications: [33yo with multiparity and undesired fertility. She is 100% sure that she has completed childbearing. Her is also scheduled for vasectomy next week. She is scheduled for hernia repair later this month with general surgery. The risks, benefits, alternatives were reviewed and she desires to proceed with planned procedure.] Procedure: The patient was taken to the operating room where general anesthesia was obtained without difficulty. The patient was then examined under anesthesia with findings as noted above with a small anteverted uterus. She was then placed in dorsal supine lithotomy position and prepped and draped in the normal sterile fashion. [place] speculum was then placed in the patient's vagina and the anterior lip of the cervix grasped with a single-tooth tenaculum. A Humi uterine manipulator was then advanced into the uterus to provide a means of manipulation of the uterus. The speculum and tenaculum were then removed from the patient's cervix and vagina. Attention was then turned to the patient's abdomen where a 5 mm infraumbilical skin incision was then made. The Optiview trocar with 0 laparoscope was then advanced without difficulty under direct visualization with the Optiview trocar. This was performed while tenting the abdominal wall and these will fashion. Intraperitoneal placement was confirmed by the direct visualization. Pneumoperitoneum was then obtained with approximately 4 L carbon dioxide gas. Survey of the patient's abdomen and pelvis revealed findings as noted above. A second skin incision was then made midline suprapubic location. These incisions were made under direct visualization with the laparoscope. The second trochar were then advanced under direct visualization of the laparoscope in the midline suprapubic area. The right fallopian tube was then identified and followed out to the fimbriated end and the Filschie clip was placed on the mid ampullary portion of the fallopian tube. The right ovary was noted to be normal and vasculature remained intact to this ovary. Attention was then turned to the left adnexa at which time the left fallopian tube was identified and followed out to the fimbriated end and the Filschie clip was placed in the mid ampullary portion of the fallopian tube. All operative sites were visualized and noted to be hemostatic. The additional trochar were removed under direct visualization. The skin at all trocar sites were closed with 3-0 Monocryl in a subcuticular fashion with overlying Dermabond. No antibiotics were indicated for this procedure. After completion of skin closure of the trocar sites attention was then turned to the vagina where the Humi uterine manipulator was removed and the bivalve speculum was replaced. Silver nitrate was applied to the tenaculum sites for hemostasis and the speculum was removed. Sponge lap needle and instrument counts were correct 3. The patient tolerated the procedure well and was taken to the recovery area awake and in stable condition.
== END 2018-12-05 14:40 | disposition home or self-care (01) ==
LOC: OROUT 09:27
PROVIDERS: ATTEND Student in an Organized Health Care Education/Training Program
DX: Z30.2 Encounter for sterilization (principal); J45.909 Unspecified asthma, uncomplicated; Z32.02 Encounter for pregnancy test, result negative
CPT/HCPCS: 36415; 85027; 81005; 81025; 00851; 58671; J2250; J3010; J1885; J2550; J2704; 851

== ENCOUNTER → 2018-12-19 | Day surgery (SDC) | payer BC, MEDICAID ==
[2018-12-01 11:40] LABS: ANION GAP 12 (5-19); BLOOD UREA NITROGEN 16 mg/dL (7-20); CALCIUM 9.9 mg/dL (8.4-10.2); CARBON DIOXIDE 28 mmol/L (22-30); CHLORIDE 100 mmol/L (98-107); GLUCOSE 95 mg/dL (75-110); POTASSIUM 4.5 mmol/L (3.6-5.0)
[~2018-12-19] MED LIST changes: +ALBUTEROL SULFATE 0.083% NEB 2.5 MG/3 ML AMPUL NEB ONE; +BUPIVACAINE HCL 0.25 % INJ/PF (2.5 MG/1 ML) 30 ML VIAL ONE; +CEFAZOLIN SODIUM 2 GM in DEXTROSE 5%-WATER 100 ML IV PRN; +DEXAMETHASONE SOD PHOSPHATE INJ 4 MG/1 ML VIAL ONE; +FENTANYL CITRATE INJ/PF 100 MCG/2 ML AMPUL ONE; +FENTANYL CITRATE INJ/PF 250 MCG/5 ML AMPULE ONE; +IBUPROFEN 800 MG in NORMAL SALINE 250 ML IV PRN; +MIDAZOLAM 2 MG/2 ML INJ IV ONE; +MIDAZOLAM 2 MG/2 ML INJ ONE; +ONDANSETRON HCL INJ/PF 4 MG/2 ML SDV ONE; +PROPOFOL INJ 200 MG/20 ML VIAL IV ONE; +SCOPOLAMINE HYDROBROMIDE 1.5 MG PATCH.TD72 ONE; +SCOPOLAMINE HYDROBROMIDE 1.5 MG PATCH.TD72 TD ONE; +SUGAMMADEX SODIUM 200 MG/2 ML SDV IV ONE
[2018-12-19 08:04] VITALS: BP 110/62
== END ==
LOC: OROUT 06:52
PROVIDERS: ATTEND Surgery
DX: M62.08 Separation of muscle (nontraumatic), other site (principal); K42.9 Umbilical hernia without obstruction or gangrene; Z01.818 Encounter for other preprocedural examination
CPT/HCPCS: 36415; 81025; 80048; J0690; J7060; J7050; J1741; J1100; J2250; J2405; J2704; J3010; J3490

== ENCOUNTER 2019-01-09 10:37 | Day surgery (SDC) | payer BC, MEDICAID ==
[2019-01-05 09:49] LABS: HEMATOCRIT 41.3 % (36.0-47.0); HEMOGLOBIN 14.3 g/dL (12.0-15.5); MEAN CORPUSCULAR HEMOGLOBIN 30.9 pg (27.0-33.4); MEAN CORPUSCULAR HGB CONC 34.8 g/dL (32.0-36.0); MEAN CORPUSCULAR VOLUME 89 fl (80-97); PLATELET COUNT 331 10^3/uL (150-450); RED BLOOD COUNT 4.64 10^6/uL (3.72-5.28); RED CELL DISTRIBUTION WIDTH 13.6 % (11.5-14.0); WHITE BLOOD COUNT 7.9 10^3/uL (4.0-10.5)
[2019-01-05 10:08] LABS: ANION GAP 12 (5-19); BLOOD UREA NITROGEN 15 mg/dL (7-20); CALCIUM 9.6 mg/dL (8.4-10.2); CARBON DIOXIDE 26 mmol/L (22-30); CHLORIDE 105 mmol/L (98-107); GLUCOSE 86 mg/dL (75-110); POTASSIUM 4.4 mmol/L (3.6-5.0)
[~2019-01-09 10:37] MED LIST changes: +ACETAMINOPHEN 1,000 MG/100 ML RTUPB IV PRN; -ALBUTEROL SULFATE 0.083% NEB 2.5 MG/3 ML AMPUL NEB ONE; -BUPIVACAINE HCL 0.25 % INJ/PF (2.5 MG/1 ML) 30 ML VIAL ONE; -DEXAMETHASONE SOD PHOSPHATE INJ 4 MG/1 ML VIAL ONE; -FENTANYL CITRATE INJ/PF 100 MCG/2 ML AMPUL ONE; -FENTANYL CITRATE INJ/PF 250 MCG/5 ML AMPULE ONE; -MIDAZOLAM 2 MG/2 ML INJ IV ONE; -MIDAZOLAM 2 MG/2 ML INJ ONE; -ONDANSETRON HCL INJ/PF 4 MG/2 ML SDV ONE; +PREGABALIN 50 MG CAPSULE PO PRN; -PROPOFOL INJ 200 MG/20 ML VIAL IV ONE; +ROCURONIUM BROMIDE INJ 50 MG/5 ML VIAL IV ONE; -SCOPOLAMINE HYDROBROMIDE 1.5 MG PATCH.TD72 ONE; -SCOPOLAMINE HYDROBROMIDE 1.5 MG PATCH.TD72 TD ONE; -SUGAMMADEX SODIUM 200 MG/2 ML SDV IV ONE
[2019-01-09] MEDS ORDERED: ALBUTEROL SULFATE 0.083% NEB 2.5 MG/3 ML AMPUL NEB ONE ×2 (10:46→11:15)
[2019-01-09] MEDS ORDERED: SCOPOLAMINE HYDROBROMIDE 1.5 MG PATCH.TD72 ONE (10:46)
[2019-01-09] MEDS ORDERED: MIDAZOLAM 2 MG/2 ML INJ ONE ×2 (10:46→14:45)
[2019-01-09] MEDS ORDERED: PREGABALIN 50 MG CAPSULE ONE (10:47)
[2019-01-09] MEDS ORDERED: MIDAZOLAM 2 MG/2 ML INJ IV ONE (11:15)
[2019-01-09] MEDS ORDERED: SCOPOLAMINE HYDROBROMIDE 1.5 MG PATCH.TD72 TD ONE (11:15)
[2019-01-09] MEDS ORDERED: ACETAMINOPHEN 1,000 MG/100 ML RTUPB IV ONE (11:17)
[2019-01-09] MEDS ORDERED: BUPIVACAINE HCL 0.25 % INJ/PF (2.5 MG/1 ML) 30 ML VIAL ONE (14:37)
[2019-01-09] MEDS ORDERED: PROPOFOL INJ 200 MG/20 ML VIAL IV ONE (14:44)
[2019-01-09] MEDS ORDERED: MORPHINE SULFATE 10 MG/ML INJ ONE (14:44)
[2019-01-09] MEDS ORDERED: FENTANYL CITRATE INJ/PF 250 MCG/5 ML AMPULE ONE (14:44)
[2019-01-09] MEDS ORDERED: DIPHENHYDRAMINE HCL 50 MG/ML VIAL IV PRN (15:56)
[2019-01-09] MEDS ORDERED: MORPHINE SULFATE 10 MG/ML INJ IV PRN (15:56)
[2019-01-09] MEDS ORDERED: PROMETHAZINE HCL INJ 25 MG/1 ML VIAL IV PRN ×2 (15:56)
[2019-01-09] MEDS ORDERED: FENTANYL CITRATE INJ/PF 100 MCG/2 ML AMPUL IV PRN ×3 (15:56)
[2019-01-09] MEDS ORDERED: MEPERIDINE HCL/PF INJ 25 MG/1 ML DISP.SYRIN IV PRN (15:56)
--- NOTE | 2019-01-09 17:55 | Discharge Summary ---
Discharge Summary (SDC) - Discharge Final Diagnosis: symptomatic umbilical hernia Date of Surgery: 01/09/19 Discharge Date: 01/09/19 Condition: Stable Treatment or Instructions: d/c home. Diet: as tolerated. Activity: no lifting >10 lbs x 6 weeks. F/u 7-10 days at [facility]. [place] 10/325 mg PO q6 hours PRN pain. Ibuprofen 800mg TID with meals. ok to shower in 48 hours. no tub baths or swimming pools x 2 weeks. Discharge Diet: As Tolerated Respiratory Treatments at Home: Deep Breathing/Coughing, Incentive Spirometer Discharge Activity: Balance Activity w/Rest, No Lifting Over 10 Pounds, No Lifting/Push/Pulling Home Care Assistance: None Needed Report the Following to Your Physician Immediately: Shortness of Breath, Nausea, Vomiting, Increase in Pain, Fever over 101 Degrees, Unusual Bleeding
[2019-01-09] MEDS ORDERED: HYDROCODONE/ACETAMINOPHEN 10-325 MG TABLET PO ONE (18:50)
[2019-01-09] MEDS ORDERED: HYDROCODONE/ACETAMINOPHEN 10-325 MG TABLET ONE (19:11)
[2019-01-09 19:52] VITALS: BP 127/84
--- NOTE | 2019-01-10 13:47 | Operative Report ---
Nonrecallable Operative Report DATE OF SURGERY: 01/09/19 PREOPERATIVE DIAGNOSIS: 1. Symptomatic umbilical hernia. 2. Diastasis recti POSTOPERATIVE DIAGNOSIS: Same as above OPERATION: Robot-assisted laparoscopic umbilical hernia repair with mesh, and repair of diastases recti. SURGEON: FRAKNO ROSE 1ST MARRIAGE AND FAMILY THERAPIST: JACEY GORDILLO ANESTHESIA: GA TISSUE REMOVED OR ALTERED: None COMPLICATIONS: None apparent ESTIMATED BLOOD LOSS: Minimal PROCEDURE: Drains/implants: 20 x [address] hernia mesh. Procedure in detail: After informed consent was obtained, the patient was brought to the operating room and laid in the supine position. The area of the abdomen was prepped and draped in a normal sterile fashion. A 15 blade scalpel was used to create a left upper quadrant incision. The abdomen was then accessed using a 5 mm camera, 5 mm trocar, and the Optiview technique. Once the trocar was inserted into the abdominal cavity, gas insufflation was attached. Pneumoperitoneum at this time was achieved. Next, a 12 mm left lateral trocar as well as a left lower quadrant 8 mm trocar was placed. This was done under direct laparoscopic visualization. The robot was then brought over the patient and docked appropriately. I then assumed my position at the surgeon's console. Attention was turned to the umbilical hernia defect. The preperitoneal fat and hernia sac were cleared away from the defect. Next the patient's diastasis recti was reapproximated using #1 V Lock Suture in simple running fashion. This was done far enough inferiorly to close the umbilical hernia defects. Next, a 20 x [address] hernia mesh was placed into the abdomen. It was found to adequately cover the defect, ensuring at least 5 cm of overlap. The mesh was apposed to the anterior abdominal wall using the EPS. Next, the mesh was sutured to the anterior abdominal wall using 2-0 nonabsorbable V lock suture in simple running fashion. Once the mesh was found to lie in good place, the robot was undocked, and I scrubbed back into the case. The 8 mm trochar sites were closed using 0 Vicryl suture in simple interrupted fashion with the aid of the Doroteo-David device. The 12 mm trocar was used with 0 Vicryl suture in [id number] fashion, again with the aid of the Doroteo-David device. The overlying skin was then closed with 4-0 Vicryl Rapide suture in subcuticular fashion. Dressings were placed, and the procedure was concluded. All sponge, instrument, and needle counts were correct x2. Condition: Stable. Jacey Gordillo PA-C was scrubbed and present the entirety the procedure. She assisted with all portions of the procedure including placement of the trochars, docking of the robot, exchanging of the robotic instruments, insertion of the mesh, closure of the fascia, and closure of the skin.
== END 2019-01-09 19:52 | disposition home or self-care (01) ==
LOC: OROUT 10:37
PROVIDERS: ATTEND Surgery
DX: K42.9 Umbilical hernia without obstruction or gangrene (principal); M62.08 Separation of muscle (nontraumatic), other site; J45.909 Unspecified asthma, uncomplicated; Z79.51 Long term (current) use of inhaled steroids
CPT/HCPCS: 49652; S2900; 36415; 750; 80048; 84703; 85027; 86850; 86900; 86901; C1781; J0131; J0690; J1741; J2250; J2270; J2704; J3010; J3490; J7050; J7060